=== PATIENT | male | born 1960 | race Caucasian/White ===

== ENCOUNTER 2020-10-08 05:54 | Day surgery (SDC) | payer OTHER ==
[2020-10-07 14:14] LABS: COVID AG,FIA SOURCE NASOPHARYNGEAL
[~2020-10-08] VITALS: Ht 172.7 cm; Wt 81.8 kg
[~2020-10-08 05:54] MED LIST: ACET-66 PO; ASPI-1450 PO; BUPR75 PO; DOCU-378 PO; GLIP5 PO; HYDR25TA2 PO; IBUP-2070 PO; LISI-893 PO; LORA10TA7 PO; METF-960 PO; METO25XL PO; MONT-35 PO; OMEP20 PO; PRAV40TA4 PO; TEMA15CA PO
[2020-10-08] MEDS ORDERED: SODIUM CHLORIDE 0.9% 1,000 ML ONE (06:11)
[2020-10-08] MEDS ORDERED: SODIUM CHLORIDE 0.9% 1,000 ML IV ONE (06:30)
[2020-10-08] MEDS ORDERED: QUET100T PO (07:25)
[2020-10-08] MEDS ORDERED: BACL10TA PO (07:38)
[2020-10-08] MEDS ORDERED: KETO5DRO6 OU (07:38)
[2020-10-08] MEDS ORDERED: BUSP10TA23 PO (07:38)
[2020-10-08] MEDS ORDERED: MOME13HF IH (07:38)
[2020-10-08] MEDS ORDERED: ALBU8HFA IH (07:38)
[2020-10-08] MEDS ORDERED: NITR0.4T52 SL (07:38)
[2020-10-08] MEDS ORDERED: ALPR-340 PO (07:38)
[2020-10-08] MEDS ORDERED: MIDAZOLAM HCL 5 MG/ML VIAL ONE (07:45)
[2020-10-08] MEDS ORDERED: FentaNYL CITRATE PF 100 MCG/2 ML VIAL ONE (07:45)
[2020-10-08 08:02] LABS: GLUCOMETER DEV NAME(LOC) SDS.; GLUCOSE,POINT OF CARE 195 MG/DL (70-110)
[2020-10-08] MEDS ORDERED: MethylPREDNISolone SOD SUCC 125 MG/2 ML VIAL IVP ONE (09:00)
[2020-10-08] MEDS ORDERED: OXYGEN THERAPY IH SCH (20:00)
== END 2020-10-08 11:05 | disposition home or self-care (01) ==
LOC: SURGERY 05:54
PROVIDERS: ATTEND Internal Medicine Critical Care Medicine
DX: J38.4 Edema of larynx (principal); B37.0 Candidal stomatitis; I10 Essential (primary) hypertension; F41.9 Anxiety disorder, unspecified; Z98.890 Other specified postprocedural states; Z95.5 Presence of coronary angioplasty implant and graft; E11.9 Type 2 diabetes mellitus without complications; Z90.49 Acquired absence of other specified parts of digestive tract; Z79.899 Other long term (current) drug therapy
CPT/HCPCS: 31623; 31624; 71045; 82962; 87015; 87070; 87077; 87101; 87186; 87205; 87206; 87220; 87426; 88108; 88184; 88185; 88312; C9803; J2250; J2930; J3010; J7030

== ENCOUNTER 2022-02-22 06:25 | Day surgery (SDC) | payer OTHER ==
[~2022-02-22] VITALS: Ht 172.7 cm; Wt 81.8 kg
[~2022-02-22 06:25] MED LIST changes: +ALBU8HFA IH; +ALPR-340 PO; +BACL10TA PO; +BUPR-344 PO; -BUPR75 PO; +BUSP10TA23 PO; -GLIP5 PO; +GLIP5TAB12 PO; +IBUP-1492 PO; -IBUP-2070 PO; +KETO5DRO6 OU; +METF-1211 PO; -METF-960 PO; +MOME13HF11 IH; +NITR0.4T52 SL; +QUET100T PO
[2022-02-22] MEDS ORDERED: SODIUM CHLORIDE 0.9% 1,000 ML IV ONE (06:30)
[2022-02-22] MEDS ORDERED: SODIUM CHLORIDE 0.9% 1,000 ML ONE (06:41)
[2022-02-22 07:18] LABS: COVID AG,FIA SOURCE NASOPHARYNGEAL
[2022-02-22] MEDS ORDERED: MIDAZOLAM HCL 2 MG/2 ML VIAL ONE (07:59)
[2022-02-22] MEDS ORDERED: FentaNYL CITRATE PF 100 MCG/2 ML VIAL ONE (08:00)
[2022-02-22 08:11] LABS: GLUCOMETER DEV NAME(LOC) SDS.; GLUCOSE,POINT OF CARE 139 MG/DL (70-110)
[2022-02-22] MEDS ORDERED: MethylPREDNISolone SOD SUCC 125 MG/2 ML VIAL ONE (08:54)
[2022-02-22] MEDS ORDERED: MethylPREDNISolone SOD SUCC 125 MG/2 ML VIAL IVP ONE (09:15)
[2022-02-22] MEDS ORDERED: LIDOCAINE 4% 50 ML SOLUTION ONE (16:10)
[2022-02-22] MEDS ORDERED: LIDOCAINE/PF 2% 5 ML SYRINGE IVP ONE (16:10)
[2022-02-22] MEDS ORDERED: BENZOCAINE 20% 50 MCG/SPRAY 57 GM ONE (16:10)
[2022-02-22] MEDS ORDERED: OXYGEN THERAPY IH SCH (20:00)
== END 2022-02-22 11:00 | disposition home or self-care (01) ==
LOC: SURGERY 06:25
PROVIDERS: ATTEND Internal Medicine Critical Care Medicine
DX: J38.4 Edema of larynx (principal); B37.0 Candidal stomatitis; J39.8 Other specified diseases of upper respiratory tract; Z79.899 Other long term (current) drug therapy; Z98.890 Other specified postprocedural states; Z20.822 Contact with and (suspected) exposure to COVID-19
CPT/HCPCS: 31623; 88112; 82962; 87101; 87220; 87070; 31624; 71045; 87015; 87426; 87206; 93005; J3010; J2250; J2930; J3490; J7030; C9803; Z7610